=== PATIENT | female | born 1950 | race Caucasian/White ===

== ENCOUNTER → 2017-06-05 | Outpatient (REF) | payer MEDICARE ==
[~2017-06-05] MED LIST: BETAMETHASONE DIPROPIONATE
[2017-06-05 11:49] LABS: MEAN CORPUSCULAR HGB CONC 33.2 g/dl (32.0-36.5); MEAN CORPUSCULAR VOLUME 93.4 fl (80.0-96.0); PLATELET COUNT, AUTOMATED 276 10^3/uL (150-450); RED CELL DISTRIBUTION WIDTH 13.2 % (11.5-14.5); WHITE BLOOD COUNT 6.6 10^3/uL (4.0-10.0)
[2017-06-05 12:04] LABS: ALBUMIN 3.9 GM/DL (3.2-5.2); ALBUMIN/GLOBULIN RATIO 0.98 (1.00-1.93); ALKALINE PHOSPHATASE 43 U/L (45-117); ALT/SGPT 22 U/L (12-78); ANION GAP 6 MEQ/L (8-16); AST/SGOT 14 U/L (7-37); BILIRUBIN,TOTAL 0.4 MG/DL (0.2-1.0); BLOOD UREA NITROGEN 18 MG/DL (7-18); CALCIUM LEVEL 8.8 MG/DL (8.8-10.2); CARBON DIOXIDE LEVEL 28 MEQ/L (21-32); CHLORIDE LEVEL 107 MEQ/L (98-107); CHOLESTEROL LEVEL 220 MG/DL (<200); CREATININE FOR GFR 0.54 MG/DL (0.55-1.02); GLOMERULAR FILTRATION RATE > 60.0 (>45); GLUCOSE, FASTING 110 MG/DL (80-110); POTASSIUM SERUM 4.1 MEQ/L (3.5-5.1); SODIUM LEVEL 141 MEQ/L (136-145); TOTAL PROTEIN 7.9 GM/DL (6.4-8.2); TRIGLYCERIDES LEVEL 125 MG/DL (<150)
== END ==
LOC: M SFHCPLAZ 09:12
PROVIDERS: ATTEND Internal Medicine
DX: R03.0 Elevated blood-pressure reading, without diagnosis of hypertension (principal); R73.01 Impaired fasting glucose; E78.00 Pure hypercholesterolemia, unspecified; G62.9 Polyneuropathy, unspecified

== ENCOUNTER → 2018-06-05 | Outpatient (REF) | payer MEDICARE ==
[2018-06-05 11:16] LABS: HEMATOCRIT 40.2 % (36.0-47.0); HEMOGLOBIN 13.3 g/dl (12.0-15.5); MEAN CORPUSCULAR HEMOGLOBIN 30.9 pg (27.0-33.0); MEAN CORPUSCULAR HGB CONC 33.1 g/dl (32.0-36.5); MEAN CORPUSCULAR VOLUME 93.3 fl (80.0-96.0); PLATELET COUNT, AUTOMATED 252 10^3/uL (150-450); RED BLOOD COUNT 4.31 10^6/uL (4.00-5.40); RED CELL DISTRIBUTION WIDTH 12.7 % (11.5-14.5); WHITE BLOOD COUNT 6.4 10^3/uL (4.0-10.0)
[2018-06-05 11:17] LABS: ALBUMIN 3.9 GM/DL (3.2-5.2); ALBUMIN/GLOBULIN RATIO 0.98 (1.00-1.93); ALKALINE PHOSPHATASE 52 U/L (45-117); ALT/SGPT 20 U/L (12-78); ANION GAP 8 MEQ/L (8-16); AST/SGOT 13 U/L (7-37); BILIRUBIN,TOTAL 0.3 MG/DL (0.2-1.0); BLOOD UREA NITROGEN 17 MG/DL (7-18); CARBON DIOXIDE LEVEL 27 MEQ/L (21-32); CHLORIDE LEVEL 106 MEQ/L (98-107); CHOLESTEROL LEVEL 213 MG/DL (<200); CREATININE FOR GFR 0.65 MG/DL (0.55-1.30); GLOMERULAR FILTRATION RATE > 60.0 (>39); GLUCOSE, FASTING 114 MG/DL (70-100); HDL CHOLESTEROL 78 MG/DL (>40); LDL CHOLESTEROL 115 MG/DL (<100); NON-HDL-C 135 MG/DL; POTASSIUM SERUM 4.9 MEQ/L (3.5-5.1); SODIUM LEVEL 141 MEQ/L (136-145); TOTAL PROTEIN 7.9 GM/DL (6.4-8.2); TRIGLYCERIDES LEVEL 101 MG/DL (<150)
[2018-06-05 11:18] LABS: FOLATE 15.3 NG/ML; VITAMIN B12 LEVEL 240 PG/ML
[2018-06-05 12:58] LABS: ESTIMATED AVERAGE GLUCOSE 157 MG/DL (60-110); HEMOGLOBIN A1c 7.1 %
== END ==
LOC: M SFHCPLAZ 08:49
DX: R03.0 Elevated blood-pressure reading, without diagnosis of hypertension (principal); R73.01 Impaired fasting glucose; E78.00 Pure hypercholesterolemia, unspecified; G62.9 Polyneuropathy, unspecified
CPT/HCPCS: 82746

== ENCOUNTER → 2018-06-22 | Outpatient (CLI) | payer MEDICARE ==
--- NOTE | 2018-06-22 16:08 | REPMRS ---
Patient History The patient states she has not had a clinical breast exam in over a year. Patient is postmenopausal. No known family history of cancer. No Hormone Replacement Therapy Digital Woman Screen Mammo: June 22, 2018 - Exam #: [id number] Bilateral CC and MLO view(s) were taken. Technologist: Karley Roque, Technologist Prior study comparison: April 29, 2015, bilateral digital mammo screening bilat, performed at [facility]. March 28, 2014, bilateral bilat screen digital mammo, performed at [facility] ([facility]). September 21, 2012, bilateral bilat screen digital mammo, performed at [facility] ([facility]). FINDINGS: The breast tissue is almost entirely fat. There has been no change in the appearance of the mammogram from the prior studies. There is no interval development of dominant mass, architectural distortion, or clustered microcalcification typical of malignancy. 3-D tomosynthesis shows no additional findings. Assessment: BI-RADS/ACR category 1 mammogram. Negative. Recommendation Routine screening mammogram of both breasts in 1 year (for women over age 40). This patient's Lifetime Breast Cancer RIsk is estimated at 4.8 %. This mammogram was interpreted with the aid of an FDA-approved computer-aided dectection system. Electronically Signed By: Meir Snow MD 06/22/18 [id number]
== END ==
LOC: M WHC 10:50
PROVIDERS: ATTEND Internal Medicine
DX: Z12.31 Encounter for screening mammogram for malignant neoplasm of breast (principal); Z78.0 Asymptomatic menopausal state

== ENCOUNTER → 2019-06-07 | Outpatient (REF) | payer MEDICARE ==
[2019-06-07 11:57] LABS: ALBUMIN 3.8 GM/DL (3.2-5.2); ALT/SGPT 18 U/L (12-78); BILIRUBIN,TOTAL 0.5 MG/DL (0.2-1.0); BLOOD UREA NITROGEN 14 MG/DL (7-18); CALCIUM LEVEL 8.8 MG/DL (8.8-10.2); CARBON DIOXIDE LEVEL 27 MEQ/L (21-32); CHLORIDE LEVEL 107 MEQ/L (98-107); CHOLESTEROL LEVEL 187 MG/DL (<200); CHOLESTEROL RISK RATIO 2.397 (<5); CREATININE FOR GFR 0.68 MG/DL (0.55-1.30); GLOMERULAR FILTRATION RATE > 60.0 (>39); GLUCOSE, FASTING 110 MG/DL (70-100); HDL CHOLESTEROL 78 MG/DL (>40); LDL CHOLESTEROL 92 MG/DL (<100); NON-HDL-C 109 MG/DL; POTASSIUM SERUM 3.9 MEQ/L (3.5-5.1); SODIUM LEVEL 143 MEQ/L (136-145); TOTAL PROTEIN 7.5 GM/DL (6.4-8.2); TRIGLYCERIDES LEVEL 87 MG/DL (<150)
[2019-06-07 12:06] LABS: VITAMIN B12 LEVEL 303 PG/ML (247-911)
[2019-06-07 12:15] LABS: HEMOGLOBIN A1c 6.5 %
[2019-06-07 12:33] LABS: CREATININE, URINE 89.5 MG/DL; MALB URINE SIEMENS 11.8 MG/L; MAU/CREAT RATIO 13.1 MCG/MG (0.0-30.0)
== END ==
LOC: M SFHCPLAZ 09:13
PROVIDERS: ATTEND Internal Medicine
DX: R73.01 Impaired fasting glucose (principal); G62.9 Polyneuropathy, unspecified; E78.00 Pure hypercholesterolemia, unspecified; M85.851 Other specified disorders of bone density and structure, right thigh

== ENCOUNTER 2019-12-20 13:05 | Emergency (ER) | payer MEDICARE ==
[~2019-12-20] VITALS: Ht 152.4 cm; Wt 53.6 kg
[2019-12-20] MEDS ORDERED: B-12100T2 PO (13:30)
[2019-12-20] MEDS ORDERED: LIDOCAINE W/EPINEPHRINE 1% 20ML VIAL SC ONE (13:30)
[2019-12-20] MEDS ORDERED: BOOSTRIX/ADACEL VACCINE (DIPHTH/PERTUSS/ACELL/TETANUS) 0.5ML SYR IM ONE (13:30)
[2019-12-20 14:43] VITALS: BP 174/83
== END 2019-12-20 14:44 | disposition home or self-care (01) ==
LOC: M ED 13:05 → EDBD 13:05 → M ED 14:44
DX: S01.01XA Laceration without foreign body of scalp, initial encounter (principal); W10.8XXA Fall (on) (from) other stairs and steps, initial encounter; Y92.018 Other place in single-family (private) house as the place of occurrence of the external cause; I10 Essential (primary) hypertension; E78.5 Hyperlipidemia, unspecified

== ENCOUNTER 2019-12-27 06:57 | Emergency (ER) | payer MEDICARE ==
[~2019-12-27] VITALS: Ht 154.9 cm; Wt 54.1 kg
[2019-12-27 06:57] VITALS: BP 169/81
[~2019-12-27 06:57] MED LIST changes: +B-12100T2 PO
== END 2019-12-27 07:26 | disposition home or self-care (01) ==
LOC: M ED 06:57
DX: Z48.02 Encounter for removal of sutures (principal)